=== PATIENT | female | born 1975 | race Caucasian/White ===

== ENCOUNTER 2020-12-16 18:21 | Emergency (ER) | payer OTHER ==
[~2020-12-16 18:21] MED LIST: IBUPROFEN800 MG PO; MEDROL 4MG DOSEP4 MG PO; NORVASC5 MG PO; PEPCID AC20 MG PO; PRINIVIL20 MG PO; TRIAMCINOLONE 080 GM TOP; VENTOLIN HFA IN18 GM INH
[2020-12-16] MEDS ORDERED: NORVASC5 MG PO (20:07)
[2020-12-16] MEDS ORDERED: PRINIVIL20 MG PO (20:07)
== END 2020-12-16 20:22 | disposition home or self-care (01) ==
LOC: FER 18:21
DX: S82.832A Other fracture of upper and lower end of left fibula, initial encounter for closed fracture (principal); I10 Essential (primary) hypertension; F17.210 Nicotine dependence, cigarettes, uncomplicated; Z88.8 Allergy status to other drugs, medicaments and biological substances; Z79.899 Other long term (current) drug therapy; W17.2XXA Fall into hole, initial encounter; Y92.009 Unspecified place in unspecified non-institutional (private) residence as the place of occurrence of the external cause
CPT/HCPCS: 73610

== ENCOUNTER 2021-08-28 20:06 | Emergency (ER) | payer OTHER ==
[2021-08-28 21:11] LABS: BASOPHIL 0.4 % (0-2); EOSINOPHIL 3.4 % (0-5); HCT 45.1 % (37.0-47.0); HGB 15.3 g/dl (12.5-16.0); LYMPHOCYTE 31.5 % (15-48); MCH 33.8 pg (25.0-31.0); MCHC 33.9 g/dL (32.0-36.0); MCV 99.6 fL (78.0-100.0); MONOCYTE 7.3 % (0-12); MPV 10.4 fL (6.0-9.5); NEUTROPHIL 57.3 % (41-80); NRBC 0; PLT 281 K/uL (150-400); RBC 4.53 M/uL (4.20-5.40); RDW 12.8 % (11.5-14.0); WBC 10.4 K/uL (4.0-10.5)
[2021-08-28 21:36] LABS: BUN/CREAT RATIO (CALC) 16.2 RATIO; CREATININE 0.74 mg/dL (0.51-0.95)
[2021-08-28 22:25] LABS: BILIRUBIN NEGATIVE (NEGATIVE); BLOOD TRACE-INTACT Ery/uL (NEGATIVE); CLARITY CLEAR (CLEAR); COLOR YELLOW (YELLOW); GLUCOSE (U) NORMAL (NORMAL); LEUKOCYTES NEGATIVE Leu/uL (NEGATIVE); NITRITE NEGATIVE (NEGATIVE); PROTEIN NEGATIVE (NEGATIVE); UROBILINOGEN 0.2 mg/dL (0.2-1.0); pH 6.5 (5.0-9.0)
[2021-08-28 22:26] LABS: AMPHETAMINES NEGATIVE (NEGATIVE); BARBITURATES NEGATIVE (NEGATIVE); ECSTASY (MDMA) NEGATIVE (NEGATIVE); MARIJUANA (THC) NEGATIVE (NEGATIVE); METHADONE NEGATIVE (NEGATIVE); OPIATES NEGATIVE (NEGATIVE); OXYCODONE NEGATIVE (NEGATIVE)
[2021-08-28 22:40] LABS: BACTERIA TRACE
== END 2021-08-29 01:38 | disposition home or self-care (01) ==
LOC: FER 20:06
PROVIDERS: Nurse Practitioner Family
DX: I16.0 Hypertensive urgency (principal); I10 Essential (primary) hypertension; F17.210 Nicotine dependence, cigarettes, uncomplicated; Z88.8 Allergy status to other drugs, medicaments and biological substances; Z79.899 Other long term (current) drug therapy
CPT/HCPCS: 36415; 70450; 71045; 80048; 80305; 81001; 84484; 85025; 93005; J3490; J7030; Q9967